=== PATIENT | female | born 1940 | race African-American/Black ===

== ENCOUNTER 2016-12-24 17:11 | Inpatient (IN) | payer BC, MEDICARE, OTHER ==
[~2016-12-24] VITALS: Ht 167.6 cm; Wt 79.8 kg
[2016-12-24] MEDS ORDERED: MORPHINE SULFATE 4 MG/ML CPJ (NOT FOR IM USE) IV STA (17:39)
[2016-12-24] MEDS ORDERED: ONDANSETRON HCL 4MG/2ML VIAL IV STA (17:39)
[2016-12-24 18:10] LABS: BASOPHILS % 0.8 % (0.0-2.0); EOSINOPHILS % 2.2 % (0.0-5.0); HEMATOCRIT. 35.7 % (36.0-48.0); HEMOGLOBIN. 11.8 g/dL (12.0-16.0); LYMPHOCYTES % 30.2 % (20.0-50.0); MEAN CORPUSCULAR HEMOGLOBIN 30.6 pg (28.0-32.0); MEAN CORPUSCULAR VOLUME 92.3 fL (81.0-99.0); MEAN PLATELET VOLUME 8.1 fl (7.4-10.4); MONOCYTES % 9.2 % (2.0-8.0); NEUTROPHILS % 57.6 % (40.0-76.0); PLATELET 220 x1000/uL (130-400); RED BLOOD CELL COUNT 3.86 mill/uL (4.2-5.4); RED CELL DISTRIBUTION WIDTH 13.5 % (11.6-14.6)
[2016-12-24 18:13] LABS: PROTHROMBIN TIME 10.3 sec
[2016-12-24 18:25] LABS: BETA HYDROXYBUTYRATE 0.1 mMol/L (0.0-0.3); CARBON DIOXIDE 27 mEq/L (21-32); CHLORIDE 98 mEq/L (98-107); TROPONIN I < 0.02 ng/mL (0.00-0.04)
[2016-12-24 19:55] LABS: BG BASE EXCESS 3.8 mmol/L (-2.0-2.0); BG CARBOXYHEMOGLOBIN 0.1 % (0.5-1.5); BG DEOXYHEMOGLOBIN 2.4 % (0.0-5.0); BG FRACTION INSPIRED OXYGEN 28; BG HCO3 ACT 28.3 mmol/L (22.0-26.0); BG METHEMOGLOBIN 0.2 % (0.0-1.5); BG OXYGEN SATURATION 97.6 % (92.0-98.5); BG OXYHEMOGLOBIN 97.3 % (94.0-97.0); BG PCO2 42.6 mmHg (35.0-45.0); BG PH 7.441 (7.350-7.450); BG SAMPLE SITE LEFT RADIAL; BG TOTAL HEMOGLOBIN 11.2 g/dL (12.0-18.0); BG VENT MODE NASAL CANNULA
[2016-12-24] MEDS ORDERED: ACETAMINOPHEN 325MG TABLET PO PRN (22:15)
[2016-12-24] MEDS ORDERED: GUAIFENESIN 200MG/10ML SUGAR FREE UDC PO PRN (22:15)
[2016-12-24] MEDS ORDERED: ZOLPIDEM TARTRATE 5MG TABLET PO PRN (22:15)
[2016-12-24] MEDS ORDERED: DEXTROSE 50% WATER 50ML SYRINGE IV PRN (22:15)
[2016-12-24] MEDS ORDERED: MAGNESIUM/ALUMINUM HYDROXIDE/SIMETHICONE 30ML UDC PO PRN (22:15)
[2016-12-24] MEDS ORDERED: NA PHOS,M-B/NA PHOS,DI-BA ENEMA 118ML PR PRN (22:15)
[2016-12-24] MEDS ORDERED: NITROGLYCERIN 0.4MG TABLET SL SL PRN (22:15)
[2016-12-24] MEDS ORDERED: IPRATROPIUM/ALBUTEROL 0.5-3(2.5)MG/3ML NEB INH PRN (22:15)
[2016-12-24] MEDS ORDERED: DIPHENHYDRAMINE 50MG/ML VIAL IV PRN (22:15)
[2016-12-24] MEDS ORDERED: ONDANSETRON HCL 4MG/2ML VIAL IV PRN (22:15)
[2016-12-24] MEDS ORDERED: INSULIN REGULAR (HUMULIN R) UD 100 UNITS/ML SYR IV ONE (22:15)
[2016-12-24] MEDS ORDERED: KETOROLAC 15MG/ML VIAL IV PRN (22:15)
[2016-12-24] MEDS ORDERED: TRAMADOL 50MG TABLET PO PRN (22:15)
[2016-12-24] MEDS ORDERED: CLONIDINE 0.1MG TABLET PO PRN (22:15)
[2016-12-24] MEDS ORDERED: LORAZEPAM 2MG/ML CPJ IV PRN (22:15)
[2016-12-24] MEDS ORDERED: INSULIN REGULAR (HUMULIN R) 300UNITS/3ML IV NR (22:30)
[2016-12-24 22:52] VITALS: BP 130/90
[2016-12-25] MEDS ORDERED: INSU3INS6 SUBCUT
[2016-12-25] MEDS ORDERED: INSLIS SQ
[2016-12-25] MEDS ORDERED: ASPI-1159 PO
[2016-12-25] MEDS ORDERED: PIOG15TA23 PO
[2016-12-25] MEDS ORDERED: LOSA25TA12 PO
[2016-12-25] MEDS ORDERED: METF10002 PO
[2016-12-25] MEDS: DOCUSATE SODIUM 100MG CAPSULE PO PRN (00:09)
[2016-12-25] MEDS: ENOXAPARIN 40MG/0.4ML SYR SUBCUT SCH ×2 (00:10→22:08)
[2016-12-25] MEDS: MORPHINE SULFATE 2 MG/ML CPJ (NOT FOR IM USE) IV PRN ×3 (00:11→18:53)
[2016-12-25] MEDS ORDERED: INSULIN DETEMIR UD 100 UNITS/ML SYR SUBCUT SCH (01:00)
[2016-12-25 04:00] VITALS: BP 120/83
[2016-12-25] MEDS: BLOOD SUGAR DIAGNOSTIC STRIP TEST SCH ×4 (06:56→21:53)
[2016-12-25 07:58] LABS: CREATINE KINASE MB FRACTION 0.8 ng/mL (0.5-3.6); TROPONIN I < 0.02 ng/mL (0.00-0.04)
[2016-12-25 08:00] VITALS: BP 123/62
[2016-12-25] MEDS: PANTOPRAZOLE SODIUM 40 MG/VIAL IV SCH (08:46)
[2016-12-25] MEDS: METOPROLOL TARTRATE 25MG TABLET PO SCH ×2 (08:47→21:56)
[2016-12-25] MEDS: INSULIN LISPRO 100 UNITS/ML SUBCUT SCH ×4 (08:48→21:55)
[2016-12-25] MEDS ORDERED: ASPIRIN 325MG EC TABLET PO SCH (09:00)
[2016-12-25 09:21] LABS: *AMPHETAMINES SCREEN URINE NEGATIVE (NEGATIVE); *BARBITURATES SCREEN URINE NEGATIVE (NEGATIVE); *BENZODIAZEPINES SCREEN URINE NEGATIVE (NEGATIVE); *COCAINE SCREEN URINE NEGATIVE (NEGATIVE); CANNABINOID URINE SCREEN NEGATIVE (NEGATIVE); METHADONE URINE SCREEN NEGATIVE (NEGATIVE); OPIATES URINE SCREEN PRESUMTIVE POSITIVE (NEGATIVE); PHENCYCLIDINE URINE SCREEN NEGATIVE (NEGATIVE)
[2016-12-25 12:03] VITALS: BP 127/68
[2016-12-25 15:40] LABS: CREATINE KINASE MB FRACTION 0.9 ng/mL (0.5-3.6); TROPONIN I < 0.02 ng/mL (0.00-0.04)
[2016-12-25 16:00] VITALS: BP 121/66
[2016-12-25] MEDS: LOSARTAN POTASSIUM 25 MG TABLET PO SCH (18:53)
[2016-12-25 20:00] VITALS: BP 114/81
[2016-12-25] MEDS: INSULIN DETEMIR UD 100 UNITS/ML SYR SUBCUT SCH (22:05)
[2016-12-26] VITALS: BP 96/60
[2016-12-26 04:00] VITALS: BP 97/58
[2016-12-26] MEDS: DOCUSATE SODIUM 100MG CAPSULE PO PRN (05:59)
[2016-12-26] MEDS: BLOOD SUGAR DIAGNOSTIC STRIP TEST SCH ×4 (07:20→21:51)
[2016-12-26] MEDS: INSULIN LISPRO 100 UNITS/ML SUBCUT SCH ×4 (07:42→21:49)
[2016-12-26 08:00] VITALS: BP 108/58
[2016-12-26] MEDS: ASPIRIN 81MG TABLET PO SCH (08:52)
[2016-12-26] MEDS: PANTOPRAZOLE SODIUM 40 MG/VIAL IV SCH (08:52)
[2016-12-26] MEDS: METOPROLOL TARTRATE 25MG TABLET PO SCH ×2 (08:53→21:50)
[2016-12-26] MEDS: LOSARTAN POTASSIUM 25 MG TABLET PO SCH (08:53)
[2016-12-26 12:00] VITALS: BP 133/66
[2016-12-26 16:00] VITALS: BP 116/62
[2016-12-26] MEDS: MORPHINE SULFATE 2 MG/ML CPJ (NOT FOR IM USE) IV PRN ×2 (18:31→21:50)
[2016-12-26 20:00] VITALS: BP 115/79
[2016-12-26] MEDS: INSULIN DETEMIR UD 100 UNITS/ML SYR SUBCUT SCH (21:49)
[2016-12-26] MEDS: ENOXAPARIN 40MG/0.4ML SYR SUBCUT SCH (21:50)
[2016-12-27] VITALS: BP 110/60
[2016-12-27 04:00] VITALS: BP 109/66
[2016-12-27] MEDS: MORPHINE SULFATE 2 MG/ML CPJ (NOT FOR IM USE) IV PRN (06:48)
[2016-12-27] MEDS: BLOOD SUGAR DIAGNOSTIC STRIP TEST SCH ×2 (06:50→12:22)
[2016-12-27] MEDS: ASPIRIN 81MG TABLET PO SCH (08:19)
[2016-12-27] MEDS: INSULIN LISPRO 100 UNITS/ML SUBCUT SCH ×2 (08:21→13:30)
[2016-12-27] MEDS: METOPROLOL TARTRATE 25MG TABLET PO SCH (08:22)
[2016-12-27] MEDS: LOSARTAN POTASSIUM 25 MG TABLET PO SCH (08:22)
[2016-12-27] MEDS ORDERED: FAMOTIDINE 20MG/2ML VIAL IV SCH (09:00)
[2016-12-27 09:03] VITALS: BP 106/62
[2016-12-27 12:00] VITALS: BP 131/81
[2016-12-27 12:50] VITALS: BP 131/81
== END 2016-12-27 13:55 | disposition home or self-care (01) | DRG 313 ==
LOC: ER 17:24 → 6WST 19:47 → EDBEDREQ 19:50 → ENRESERV 21:18 → SUPCPDRO 22:03
PROVIDERS: ADMIT Internal Medicine; ATTEND Internal Medicine
DX: R07.89 Other chest pain (principal); E11.65 Type 2 diabetes mellitus with hyperglycemia; E78.00 Pure hypercholesterolemia, unspecified; E78.5 Hyperlipidemia, unspecified; I10 Essential (primary) hypertension; Z60.2 Problems related to living alone; N28.9 Disorder of kidney and ureter, unspecified; Z88.0 Allergy status to penicillin; Z82.49 Family history of ischemic heart disease and other diseases of the circulatory system; Z87.891 Personal history of nicotine dependence; Z79.4 Long term (current) use of insulin; Z79.899 Other long term (current) drug therapy
CPT/HCPCS: 36415; 36600; 71010; 80053; 80061; 80305; 82010; 82375; 82553; 82805; 82962; 83036; 83880; 84484; 85025; 85610; 87086; 93005; 93306; 93970; 96374; 96375; 99285; C9113; J1650; J1815; J2270; J2405; J3490

== ENCOUNTER 2017-03-16 20:44 | Inpatient (IN) | payer OTHER ==
[~2017-03-16] VITALS: Ht 167.6 cm; Wt 78.0 kg
[~2017-03-16 20:44] MED LIST: ASPI-1159 PO; INSLIS SQ; INSU3INS6 SUBCUT; LOSA25TA12 PO; METF10002 PO; PIOG15TA23 PO
[2017-03-16] MEDS ORDERED: MORPHINE SULFATE 4 MG/ML CPJ (NOT FOR IM USE) IV STA (23:36)
[2017-03-16] MEDS ORDERED: ONDANSETRON HCL 4MG/2ML VIAL IV STA (23:36)
[2017-03-16] MEDS ORDERED: NITROGLYCERIN 0.4MG TABLET SL SL PRN (23:45)
[2017-03-17 00:03] LABS: BASOPHILS % 0.9 % (0.0-2.0); EOSINOPHILS % 2.7 % (0.0-5.0); HEMATOCRIT. 33.7 % (36.0-48.0); HEMOGLOBIN. 11.1 g/dL (12.0-16.0); LYMPHOCYTES % 34.5 % (20.0-50.0); MEAN CORPUSCULAR HEMOGLOBIN 30.3 pg (28.0-32.0); MEAN CORPUSCULAR VOLUME 92.3 fL (81.0-99.0); MONOCYTES % 8.5 % (2.0-8.0); NEUTROPHILS % 53.4 % (40.0-76.0); PLATELET 208 x1000/uL (130-400); RED BLOOD CELL COUNT 3.65 mill/uL (4.2-5.4); RED CELL DISTRIBUTION WIDTH 13.8 % (11.6-14.6)
[2017-03-17 00:10] LABS: PROTHROMBIN TIME 10.8 sec (9.4-11.6)
[2017-03-17 00:17] LABS: CARBON DIOXIDE 26 mEq/L (21-32); CHLORIDE 102 mEq/L (98-107); TROPONIN I < 0.02 ng/mL (0.00-0.04)
[2017-03-17 07:31] VITALS: BP 135/63
[2017-03-17] MEDS ORDERED: DEXTROSE 50% WATER 50ML SYRINGE IV PRN (11:15)
[2017-03-17 12:34] VITALS: BP 114/49
[2017-03-17] MEDS: BLOOD SUGAR DIAGNOSTIC STRIP TEST SCH ×3 (12:39→21:00)
[2017-03-17] MEDS: INSULIN LISPRO 100 UNITS/ML SUBCUT SCH ×5 (12:51→22:21)
[2017-03-17] MEDS: ASPIRIN 81MG EC TABLET PO SCH (12:52)
[2017-03-17] MEDS: LOSARTAN POTASSIUM 25 MG TABLET PO SCH (12:53)
[2017-03-17 16:40] VITALS: BP 108/55
[2017-03-17] MEDS ORDERED: MEDICATION NOT ON FORMULARY EA (Insulin Glargine,Hum.rec.anlog (Lantus Solostar) 30 UNIT SUBCUT SCH (17:00)
[2017-03-17] MEDS: METFORMIN HCL 500MG TABLET PO SCH (19:07)
[2017-03-17 20:10] VITALS: BP 121/52
[2017-03-17] MEDS ORDERED: ACETAMINOPHEN 650MG/20.3ML UDC GT PRN (20:15)
[2017-03-17] MEDS ORDERED: REGADENOSON 0.4 MG/5 ML IV ONE (20:15)
[2017-03-17] MEDS ORDERED: ENOXAPARIN 40MG/0.4ML SYR SUBCUT SCH (21:00)
[2017-03-17] MEDS ORDERED: INSULIN DETEMIR UD 100 UNITS/ML SYR SUBCUT SCH (22:00)
[2017-03-17] MEDS: IBUPROFEN 600MG TABLET PO SCH (22:19)
[2017-03-17] MEDS: FERROUS SULFATE 325MG TABLET PO SCH (22:19)
[2017-03-17 23:48] LABS: CREATINE KINASE 41 IU/L (26-192); CREATINE KINASE MB FRACTION 0.6 ng/mL (0.5-3.6); TROPONIN I < 0.02 ng/mL (0.00-0.04)
[2017-03-18] VITALS (7 sets, daily range): BP systolic 102–143; BP diastolic 44–64
[2017-03-18] MEDS: BLOOD SUGAR DIAGNOSTIC STRIP TEST SCH ×2 (06:54→13:14)
[2017-03-18] MEDS: IBUPROFEN 600MG TABLET PO SCH ×2 (06:56→14:13)
[2017-03-18] MEDS: INSULIN LISPRO 100 UNITS/ML SUBCUT SCH ×4 (07:20→14:15)
[2017-03-18 07:46] LABS: CREATINE KINASE 38 IU/L (26-192); CREATINE KINASE MB FRACTION < 0.5 ng/mL (0.5-3.6); TROPONIN I < 0.02 ng/mL (0.00-0.04)
[2017-03-18] MEDS: METFORMIN HCL 500MG TABLET PO SCH (07:50)
[2017-03-18] MEDS ORDERED: REGADENOSON 0.4 MG/5 ML IV ONE (08:43)
[2017-03-18] MEDS: FERROUS SULFATE 325MG TABLET PO SCH (10:42)
[2017-03-18] MEDS: ASPIRIN 81MG EC TABLET PO SCH (10:42)
[2017-03-18] MEDS: LOSARTAN POTASSIUM 25 MG TABLET PO SCH (10:46)
[2017-03-18 16:57] LABS: CREATINE KINASE 38 IU/L (26-192); CREATINE KINASE MB FRACTION < 0.5 ng/mL (0.5-3.6); TROPONIN I < 0.02 ng/mL (0.00-0.04)
== END 2017-03-18 17:55 | disposition home or self-care (01) | DRG 313 ==
LOC: ER 22:15 → EDBEDREQ 03-17 00:55 → EDBEDREQTM 03-17 00:55 → 6WST 03-17 00:55 → ENRESERV 03-17 02:37
PROVIDERS: ADMIT Internal Medicine Pulmonary Disease; ATTEND Internal Medicine Pulmonary Disease
DX: R07.89 Other chest pain (principal); E11.9 Type 2 diabetes mellitus without complications; I10 Essential (primary) hypertension; E78.5 Hyperlipidemia, unspecified; K59.00 Constipation, unspecified; Z96.1 Presence of intraocular lens; Z88.0 Allergy status to penicillin; Z79.899 Other long term (current) drug therapy; Z79.4 Long term (current) use of insulin; Z79.84 Long term (current) use of oral hypoglycemic drugs; Z98.41 Cataract extraction status, right eye; Z98.42 Cataract extraction status, left eye; Z79.82 Long term (current) use of aspirin; Z82.49 Family history of ischemic heart disease and other diseases of the circulatory system
CPT/HCPCS: 36415; 71010; 78452; 80053; 82550; 82553; 82962; 83880; 84484; 85025; 85610; 93005; 93017; 96374; 96375; 99285; A9500; J1650; J1815; J2270; J2405; J2785

== ENCOUNTER 2025-01-02 15:59 | Emergency (ER) | payer OTHER ==
[~2025-01-02] VITALS: Ht 167.6 cm; Wt 70.0 kg
[~2025-01-02 15:59] MED LIST changes: -ASPI-1159 PO; +ASPI-1497 PO; -LOSA25TA12 PO; +LOSA25TA26 PO; +METF-416 PO; -METF10002 PO; -PIOG15TA23 PO; +PIOG15TA68 PO
[2025-01-02 16:02] VITALS: O2SAT 99
[2025-01-02] MEDS: SODIUM CHLORIDE 0.9% 1,000 ML IV ONE (16:39)
[2025-01-02] MEDS: CEFTRIAXONE 1GM/50ML 50 ML IV ONE (16:53)
[2025-01-02 16:58] LABS: BASOPHILS % 0.7 % (0.0-2.0); EOSINOPHILS % 3.0 % (0.0-5.0); HEMATOCRIT. 36.4 % (36.0-48.0); HEMOGLOBIN. 12.2 g/dL (12.0-16.0); LYMPHOCYTES % 29.7 % (20.0-50.0); MEAN PLATELET VOLUME 8.0 fl (7.4-10.4); MONOCYTES % 8.1 % (2.0-8.0); NEUTROPHILS % 58.5 % (40.0-76.0); PLATELET 291 x1000/uL (130-400); RED BLOOD CELL COUNT 4.03 mill/uL (4.2-5.4); RED CELL DISTRIBUTION WIDTH 14.9 % (11.6-14.6)
[2025-01-02 17:05] LABS: INR 0.9
[2025-01-02] MEDS: POLYETHYLENE GLYCOL 3350 (17GM) 1 DOSE PACK PO ONE (17:08)
[2025-01-02 17:10] LABS: CREATININE 1.7 mg/dL (0.6-1.0); UREA NITROGEN BLOOD 22 mg/dL (9-23)
[2025-01-02 17:12] LABS: ASPARTATE AMINOTRANSFERASE 15 IU/L (<34); BILIRUBIN DIRECT < 0.1 mg/dL (<=3.0); TROPONIN I HIGH SENSITIVITY < 4 ng/L (3.0-34)
[2025-01-02 17:13] LABS: BILIRUBIN TOTAL 0.3 mg/dL (0.1-1.0); PROTEIN TOTAL 8.1 g/dL (6.0-8.3)
[2025-01-02] MEDS: METOPROLOL SUCCINATE 50MG ER TABLET PO STA (17:40)
[2025-01-02 18:00] VITALS: TEMP 36.8
[2025-01-02] MEDS: CLONIDINE 0.1MG TABLET PO ONE (18:03)
[2025-01-02] MEDS: ONDANSETRON HCL 4MG/2ML INJ IV ONE (18:06)
[2025-01-02] MEDS: KETOROLAC 15MG/ML VIAL IV ONE (18:06)
[2025-01-02 19:14] LABS: CLARITY URINE CLOUDY (CLEAR); COLOR URINE YELLOW (YELLOW); GLUCOSE URINE 3+ (NEGATIVE); KETONES URINE NEGATIVE (NEGATIVE); LEUKOCYTE ESTERASE URINE 3+ (NEGATIVE); NITRITE URINE NEGATIVE (NEGATIVE); OCCULT BLOOD URINE 3+ (NEGATIVE); PH URINE 5.5 (4.5-8.0); PROTEIN URINE TRACE (NEGATIVE); SPECIFIC GRAVITY URINE 1.015 (1.005-1.030); UROBILINOGEN URINE 0.2 E.U./dL (0.2-1.0)
[2025-01-02 19:35] LABS: BACTERIA URINE TRACE; SQUAMOUS EPITHELIAL CELL URINE FEW /lpf (RARE/1+); WBC URINE TNTC /hpf (0-2); YEAST URINE 1+
[2025-01-02] MEDS: INSULIN LISPRO 100 UNITS/ML SUBCUT ONE (19:50)
[2025-01-02] MEDS: METOPROLOL SUCCINATE 25MG ER TABLET PO SCH (20:50)
[2025-01-02 21:04] VITALS: BP 149/68; PULSE 70; RESP 13; O2SAT 100
== END 2025-01-02 20:30 | disposition short-term general hospital (02) ==
LOC: ER 15:59
DX: E11.65 Type 2 diabetes mellitus with hyperglycemia (principal); N39.0 Urinary tract infection, site not specified; K59.00 Constipation, unspecified; R33.9 Retention of urine, unspecified; E78.5 Hyperlipidemia, unspecified; I11.0 Hypertensive heart disease with heart failure; I50.9 Heart failure, unspecified; Z79.4 Long term (current) use of insulin; Z79.82 Long term (current) use of aspirin; Z79.84 Long term (current) use of oral hypoglycemic drugs; Z79.899 Other long term (current) drug therapy; Z88.0 Allergy status to penicillin
CPT/HCPCS: 99291; 96365; 96375; 71045; 80076; 80048; 81003; 82010; 82962; 83880; 83605; 83735; 85025; 85610; 87040; 84484; 36415; 84145; 74018; 93005; 96372; J1885; J0696; J2405; J7030; J1815